=== PATIENT | male | born 1955 | race Caucasian/White ===

== ENCOUNTER 2018-09-30 10:24 | Emergency (ER) | payer OTHER ==
--- NOTE | 2018-09-30 11:04 | EDPHY ---
H & P Time Seen by Provider: 09/30/18 10:40 HPI/ROS: CHIEF COMPLAINT: Suprapubic discomfort, urinary retention HISTORY OF PRESENT ILLNESS: The patient is a 63-year-old male status post prostatectomy in April via Davinci robot. Patient states the procedure went well. He had no new urinary retention postprocedure. Patient had 1 previous episode earlier in the week of urinary retention but ultimately was able to go to the bathroom. He has not been able to urinate for the past few hours. He has had increased suprapubic pressure and pain. He feels as though it is a pressure of needing to void. He has no rectal pain. He denies any nausea vomiting. No fevers or chills. REVIEW OF SYSTEMS: 10 systems were reveiwed and are negative with the exception of the elements mentioned in the history of present illness. Past Medical/Surgical History: Includes prostate cancer Includes prostatectomy Smoking Status: Never smoked Physical Exam: Vitals noted GENERAL: Well-appearing, in no acute distress, alert. HEENT: Eyes normal to inspection, normal pharynx, no signs of dehydration. NECK: Normal, supple. RESPIRATORY: Clear to auscultation bilaterally, no rales, rhonchi or wheezing. CVS: Regular rate and rhythm, no rubs, murmurs, or gallops. ABDOMEN: Soft, mild suprapubic distention. Mild suprapubic tenderness to palpation. No rebound or guarding. BACK: Normal to inspection, no CVA tenderness. SKIN: Normal color, no rash, warm, dry. No pallor. EXTREMITIES: No pedal edema, no calf tenderness, no Homans sign or cords, no joint swelling. NEURO/PSYCH: Alert and oriented, normal mood and affect, normal motor sensory exam. Constitutional: Initial Vital Signs Temperature (C) 36.7 C 09/30/18 10:27 Heart Rate 74 09/30/18 10:27 Respiratory Rate 24 H 09/30/18 10:27 O2 Sat (%) 100 09/30/18 10:27 O2 Delivery Mode Room Air Allergies/Adverse Reactions: No Known Allergies Allergy (Unverified 01/29/10 15:34) Home Medications: Medication Instructions Recorded NK [No Known Home Meds] 09/30/18 Medical Decision Making Procedures: Bedside ultrasound of the bladder Indication: Urinary retention Standard bedside bladder ultrasound was performed. The bladder was notably distended. There is no foreign body noted. There is no corin bladder fluid. ED Course/Re-evaluation: In the emergency department I discussed possible etiologies with the patient. I answered all his questions. Bedside ultrasound revealed a significantly full bladder. Chemistry panel pending. Schmitz catheter was ordered. Post Schmitz placement the patient felt much better. On repeat exam is abdomen is soft, nontender nondistended. Chemistry panel is unremarkable Discussed warnings with the patient. He will follow up with his urologist or our on-call urologist. He is given contact information. Differential Diagnosis: My differential includes but is not limited to urinary retention, urinary tract infection, postoperative mass, abscess - Data Points Laboratory Results: Laboratory Results 09/30/18 11:00 09/30/18 11:00 Sodium 138 mEq/L mEq/L (135-145) Potassium 4.3 mEq/L mEq/L (3.5-5.2) Chloride 106 mEq/L mEq/L (97-110) Carbon Dioxide 21 mEq/l L mEq/l (22-31) Anion Gap 11 mEq/L mEq/L (6-14) BUN 14 mg/dL mg/dL (7-23) Creatinine 0.8 mg/dL mg/dL (0.7-1.3) Estimated GFR > 60 Glucose 97 mg/dL mg/dL (70-100) Calcium 8.8 mg/dL mg/dL (8.5-10.4) Departure - Departure Disposition: Home, Routine, Self-Care Clinical Impression: Urinary retention Condition: Good Instructions: Urinary Retention in Men (ED) Additional Instructions: Return with increasing pain, Schmitz malfunction, fever or any other concerns. You need close follow-up with urologist. 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 Referrals: Mamadou Chance MD [Medical Doctor] - 2-3 days, if not improved
[2018-09-30 12:16] VITALS: BP 122/76
== END 2018-09-30 12:10 | disposition home or self-care (01) ==
DX: R33.9 Retention of urine, unspecified (principal); Z85.46 Personal history of malignant neoplasm of prostate